=== PATIENT | male | born 1995 | race Caucasian/White ===

== ENCOUNTER 2021-04-20 21:32 | Emergency (ER) | payer BC ==
[2021-04-20] MEDS ORDERED: methylPREDNISolone Sodium Succinate 125 MG/2 ML SDV IVPUSH ONE (21:42)
[2021-04-20] MEDS ORDERED: Lactated Ringers 1,000 ML IV STA (21:43)
[2021-04-20] MEDS ORDERED: Famotidine 20 MG/2 ML SDV IVPUSH ONE (21:43)
[2021-04-20] MEDS ORDERED: Ondansetron 4 MG/2 ML SDV IVPUSH ONE (21:43)
== END 2021-04-20 23:50 | disposition home or self-care (01) ==
LOC: MW.ED 21:32
DX: L50.0 Allergic urticaria (principal)
CPT/HCPCS: 96374; 96375; 99283; J2405; J2930; J3490; J7120